=== PATIENT | male | born 1945 | race Caucasian/White ===

== ENCOUNTER → 2016-05-30 | Outpatient (CLI) | payer MEDICARE ==
[~2016-05-30] MED LIST: ALLOPURINOL100 MG PO; ALPHAGAN P 10 M10 M1 OP; CALCIUM/VITAMIN1 TA1 PO; CENTRUM SILVER1 TA2 PO; CHEWABLE ASPIRI81 MG PO; HYCODAN 1.5 MG480 ML PO; INDERAL40 MG PO; LISINOPRIL10 MG PO; POTASSIUM99 M1 PO; TRICOR145 MG PO
[2016-05-30 09:26] LABS: BUN 23 mg/dL (7-18); GFR (ESTIMATED) 59 ML/MIN (>60)
--- NOTE | 2016-06-01 08:36 | RADIOLOGY REPORT PS360 ---
CT CHEST W/ CONTRAST COMPARISON: 01/30/2014 HISTORY: Sharp pains along the left chest, Follow-up cholangiocarcinoma of the liver, left upper extremity neuralgia, TECHNIQUE: Axial images obtained following the intravenous ministration of 75 mL's of Isovue-370 FINDINGS: The isthmus of the thyroid gland is somewhat prominent. No nodules are however evident. Scattered small lymph nodes are present within mediastinum not significantly changed. Normal heart size. No mediastinal or hilar mass. Coronary artery calcifications are present. There are scattered small lymph nodes in the axilla which are unchanged. There are scattered subpleural nodular opacities not significant changed some of which are calcified. No suspicious pulmonary nodules are evident. No lobar consolidation or collapse. No acute. No acute bony anomalies. There is a lucent lesion involving T10 vertebral body probably related to a hemangioma and not significantly changed. Please see thoracic spine CT report for further details. IMPRESSION: 1. Stable CT appearance of the chest with no convincing evidence of metastatic disease. 2. Chronic changes as described above
--- NOTE | 2016-06-01 08:43 | RADIOLOGY REPORT PS360 ---
CT ABD PELVIS W/ CONTRAST CLINICAL INDICATION: ELEVATED LFTS HX OF CHOLANGIOCARCINOMA,S/P LIVER RESECTION ORDERING PHYSICIAN: Tenzin Louis MD PATIENT AGE: 71 years COMPARISON: 01/30/2014 TECHNIQUE: Axial images obtained with sagittal and coronal reformats. PROCEDURE: Oral Contrast: Redicat IV Contrast: 75 mL's of Isovue-370 performed in conjunction with the chest CT. FINDINGS: There has been resection of the right lobe of the liver with hypertrophic changes of the left lobe of the liver as previously described. No hepatic mass is evident. The spleen, adrenal glands, and kidneys have an unremarkable appearance aside from small bilateral renal cysts. No hydronephrosis. There is some mild stranding in the perinephric renal fat nonspecific. Unremarkable pancreas. There is diverticulosis of the colon. No evidence of diverticulitis. No pelvic mass or abnormal fluid collection. No acute bony anomalies. No lytic or blastic lesions. IMPRESSION: 1. Overall stable CT appearance of the abdomen and pelvis. No convincing evidence of metastatic disease or recurrent neoplasm 2. Prior partial hepatectomy. 3. Diverticulosis of the colon
--- NOTE | 2016-06-01 08:48 | RADIOLOGY REPORT PS360 ---
CT THORACIC SPINE W/O CONTRAST INDICATION: Pain, history of cholangiocarcinoma LEFT UPPER EXTREMITY NEURALGIA ORDERING PHYSICIAN: Tenzin Louis MD PATIENT AGE: 71 years COMPARISON: Previous chest CT of 01/30/2014 TECHNIQUE: Axial images are obtained without contrast. Sagittal and coronal reformatted images are reviewed as well. FINDINGS: Normal alignment. No fracture or dislocation evident. No lytic or blastic change. There is a 16 mm area of decreased attenuation involving the T9 vertebral body similar to the previous exam consistent with a hemangioma. There is mild multilevel degenerative disc disease from T4-T10 with Schmorl's nodes, decrease in the disc space with osteosclerosis of the endplates and osteophyte formation. There is sclerosis of the medial aspect of the left 11th rib. This did have a similar appearance on the previous exams as felt represent benign area of sclerosis. No paravertebral mass. IMPRESSION: 1. No acute finding. No lytic or blastic change evident. 2. 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
== END ==
LOC: RAD 09:01
PROVIDERS: Internal Medicine
DX: R94.5 Abnormal results of liver function studies (principal); M79.2 Neuralgia and neuritis, unspecified
CPT/HCPCS: Q9967

== ENCOUNTER → 2017-01-28 | Outpatient (CLI) | payer MEDICARE ==
[2017-01-28 09:27] LABS: LYMPH # 1.1 K/mm3 (0.7-4.5); LYMPH % 17.2 % (10-50)
[2017-01-28 09:53] LABS: BUN 20 mg/dL (7-18)
[2017-01-28 09:54] LABS: GFR (ESTIMATED) 54 ML/MIN (>60)
--- NOTE | 2017-01-28 09:58 | RADIOLOGY REPORT PS360 ---
CHEST(2 VIEWS-NOT PORTABLE) COMPARISON: PA and lateral chest 04/07/2014 HISTORY: Chest TECHNIQUE: PA and lateral chest FINDINGS: The lung sharma are well expanded and appear clear of infiltrate. There is mild aortic tortuosity but no cardiomegaly and there is no pleural fluid. There are mild degenerative changes mid thoracic spine. IMPRESSION: Nonacute chest findings
--- NOTE | 2017-01-28 11:59 | RADIOLOGY REPORT PS360 ---
CTA -CHEST COMPARISON: CT scan the chest with contrast 05/30/2016 HISTORY: Patient with known cholangiocarcinoma of the liver with somewhat unusual chest pains TECHNIQUE: Multiaxial scans of the chest were obtained after rapid injection of IV contrast. Sagittal coronal reformats were evaluated as well. FINDINGS: The lung sharma are well expanded and there is excellent vascular opacification. There are filling defects in the left upper lobe pulmonary artery branch and lingular branch as well . There is a questionable filling defect in the right upper lobe branch as well. No other definite emboli are identified. The lung sharma are free of active infiltrate and is no pleural fluid. There are stable small nodes in the prevascular space of the screw mediastinum. There are couple of calcified subcarinal nodes. There is no pleural fluid. Both adrenal glands are normal. IMPRESSION: Findings suggesting acute pulmonary emboli involving the upper lobes bilaterally but with a somewhat low volume embolic load, no other significant abnormality noted.
== END ==
LOC: LAB 09:08 → RAD 09:08
PROVIDERS: Internal Medicine
DX: R07.9 Chest pain, unspecified (principal); R10.13 Epigastric pain; M25.519 Pain in unspecified shoulder
CPT/HCPCS: Q9967

== ENCOUNTER → 2017-03-23 | Outpatient (CLI) | payer MEDICARE ==
[2017-03-23 11:14] LABS: LYMPH % 10.6 % (10-50)
[2017-03-23 11:21] LABS: URINE BILIRUBIN - DIPSTICK NEGATIVE (NEG); URINE BLOOD 1+ (NEG)
[2017-03-23 11:22] LABS: HEMOGLOBIN 19.2 g/dL (14.1-18.0)
--- NOTE | 2017-03-23 11:29 | RADIOLOGY REPORT PS360 ---
CHEST(2 VIEWS-NOT PORTABLE) Ordering Physician: Tenzin Louis MD Patient Age: 71 years: Male HISTORY: CHEST PAIN,CHILLS, TECHNIQUE: PA and lateral CXR COMPARISON :Previous PA and lateral CXR of 01/28/2017. Also CTA chest from 01/28/2017 utilized. FINDINGS . Less optimal inspiration today than on previous study. Slight additional elevation left hemidiaphragm. No prominent findings Note very subtle accentuation markings left infrahilar region which I favor mainly reflects mild chronic changes seen previous; although question subtle additional airspace disease reflecting atelectasis and cannot exclude subtle infiltrate left infrahilar region. . Right lung is clear unremarkable. Heart rosendo and mediastinal structures stable unremarkable. Mildly tortuous descending aorta.. No pleural effusion. No pneumothorax. Chest wall and T-spine stable minor degenerative changes T-spine IMPRESSION: 1. No prominent findings. Slight accentuation markings left infrahilar region most likely reflecting chronic changes & mild atelectasis with slight additional elevation left hemidiaphragm.. Doubt but difficult to exclude exclude very subtle wispy infiltrate here left infrahilar region towards LLL on this study. clinical correlation required
[2017-03-23 11:34] LABS: BUN 24 mg/dL (7-18)
[2017-03-23 11:35] LABS: GFR (ESTIMATED) 54 ML/MIN (>60)
[2017-03-23 11:39] LABS: URINE SQUAMOUS CELLS OCC #/hpf (OCC)
== END ==
LOC: LAB 10:44 → RAD 10:44
PROVIDERS: Internal Medicine
DX: R07.89 Other chest pain (principal); M25.50 Pain in unspecified joint; R68.83 Chills (without fever); M10.9 Gout, unspecified